=== PATIENT | female | born 1955 | race Caucasian/White ===

== ENCOUNTER 2016-10-05 16:40 | Emergency (ER) | payer MEDICAID ==
[~2016-10-05] VITALS: Ht 170.2 cm; Wt 57.9 kg
[~2016-10-05 16:40] MED LIST: FLUT1DIS3 INH
[2016-10-05 16:42] VITALS: BP 145/89
[2016-10-05] MEDS ORDERED: PROPARACAINE OPHTH 0.5%, 15ML EACHEYE ONE (17:00)
[2016-10-05] MEDS ORDERED: FLUORESCEIN OPHTHALMIC 1 MG STRIP EACHEYE ONE (17:00)
[2016-10-05] MEDS ORDERED: FLUORESCEIN OPHTHALMIC 1 MG STRIP ONE (17:17)
[2016-10-05] MEDS ORDERED: PROPARACAINE OPHTH 0.5%, 15ML ONE (17:18)
== END 2016-10-05 18:39 | disposition home or self-care (01) ==
LOC: ED 18:19
DX: H10.11 Acute atopic conjunctivitis, right eye (principal); L73.9 Follicular disorder, unspecified
CPT/HCPCS: 99283

== ENCOUNTER 2016-11-06 12:04 | Emergency (ER) | payer MEDICAID ==
[~2016-11-06] VITALS: Ht 167.6 cm; Wt 55.9 kg
[2016-11-06 12:06] VITALS: BP 150/75
[2016-11-06] MEDS ORDERED: IBUPROFEN 200 MG TABLET ONE (13:00)
[2016-11-06] MEDS ORDERED: METHOCARBAMOL 750 MG TABLET ONE (13:00)
[2016-11-06] MEDS ORDERED: OXYcodone/APAP 5/325MG TABLET PO ONE (13:00)
[2016-11-06] MEDS ORDERED: OXYcodone/APAP 5/325MG TABLET ONE (13:00)
[2016-11-06] MEDS ORDERED: METHOCARBAMOL 750 MG TABLET PO ONE (13:00)
[2016-11-06] MEDS ORDERED: IBUPROFEN 200 MG TABLET PO ONE (13:00)
== END 2016-11-06 14:50 | disposition home or self-care (01) ==
LOC: ED 14:40
DX: S49.92XA Unspecified injury of left shoulder and upper arm, initial encounter (principal); E03.9 Hypothyroidism, unspecified; E78.00 Pure hypercholesterolemia, unspecified; F17.210 Nicotine dependence, cigarettes, uncomplicated; J45.909 Unspecified asthma, uncomplicated; J44.9 Chronic obstructive pulmonary disease, unspecified; W01.0XXA Fall on same level from slipping, tripping and stumbling without subsequent striking against object, initial encounter; Y93.89 Activity, other specified; Y99.8 Other external cause status; Y92.009 Unspecified place in unspecified non-institutional (private) residence as the place of occurrence of the external cause
CPT/HCPCS: 72050; 72072

== ENCOUNTER 2017-01-28 10:41 | Emergency (ER) | payer MEDICAID ==
[~2017-01-28] VITALS: Ht 170.2 cm; Wt 50.9 kg
[2017-01-28 10:55] VITALS: BP 121/87
[2017-01-28] MEDS ORDERED: FLUORESCEIN OPHTHALMIC 1 MG STRIP ONE (11:12)
[2017-01-28] MEDS ORDERED: PROPARACAINE OPHTH 0.5%, 15ML ONE (11:12)
== END 2017-01-28 12:13 | disposition home or self-care (01) ==
LOC: ED 12:00
DX: S00.211A Abrasion of right eyelid and periocular area, initial encounter (principal); E03.9 Hypothyroidism, unspecified; J44.9 Chronic obstructive pulmonary disease, unspecified; F17.200 Nicotine dependence, unspecified, uncomplicated; W22.8XXA Striking against or struck by other objects, initial encounter; Y93.89 Activity, other specified; Y92.89 Other specified places as the place of occurrence of the external cause; Y99.8 Other external cause status
CPT/HCPCS: 99283

== ENCOUNTER 2017-03-05 16:46 | Emergency (ER) | payer MEDICAID ==
[~2017-03-05] VITALS: Ht 167.6 cm; Wt 49.7 kg
[2017-03-05] MEDS ORDERED: ONDANSETRON 2MG/ML, 2ML IVPush ONE (17:30)
[2017-03-05] MEDS ORDERED: SODIUM CHLORIDE FLUSH 10ML SYR IVF ONE (17:30)
[2017-03-05] MEDS ORDERED: HYDROmorphone 1 MG/ML, 1ML IVPush PRN (17:30)
[2017-03-05] MEDS ORDERED: HYDROmorphone 1 MG/ML, 1ML ONE (17:53)
[2017-03-05] MEDS ORDERED: ONDANSETRON 2MG/ML, 2ML ONE (17:53)
[2017-03-05 17:57] LABS: HEMOGLOBIN 14.9 g/dL (11.7-16.4); WHITE BLOOD COUNT 8.8 x10^3/uL (3.4-10)
[2017-03-05 18:07] LABS: BLOOD UREA NITROGEN 22 mg/dL (7-18)
[2017-03-05] MEDS ORDERED: OMNIPAQUE 350 MG/ML, 100ML BOTTLE ONE (18:53)
[2017-03-05 19:30] VITALS: BP 133/85
== END 2017-03-05 20:33 | disposition home or self-care (01) ==
LOC: ED 20:27
DX: S20.211A Contusion of right front wall of thorax, initial encounter (principal); J44.9 Chronic obstructive pulmonary disease, unspecified; E78.00 Pure hypercholesterolemia, unspecified; W01.190A Fall on same level from slipping, tripping and stumbling with subsequent striking against furniture, initial encounter; Y93.89 Activity, other specified; Y99.8 Other external cause status; Y92.89 Other specified places as the place of occurrence of the external cause
CPT/HCPCS: 36415; 71101; 74177; 80048; 82040; 85025; 96374; 96375; 99285; J1170; J2405; Q9967

== ENCOUNTER 2017-05-12 12:15 | Emergency (ER) | payer MEDICAID ==
[~2017-05-12] VITALS: Ht 168.9 cm; Wt 51.7 kg
[2017-05-12 12:16] VITALS: BP 122/85
== END 2017-05-12 13:54 | disposition home or self-care (01) ==
LOC: ED 13:44
DX: N30.90 Cystitis, unspecified without hematuria (principal); J01.00 Acute maxillary sinusitis, unspecified; J44.9 Chronic obstructive pulmonary disease, unspecified; E03.9 Hypothyroidism, unspecified; E78.00 Pure hypercholesterolemia, unspecified
CPT/HCPCS: 81001; 87077; 87086; 87186; 99284

== ENCOUNTER 2017-09-13 19:22 | Emergency (ER) | payer MEDICAID ==
[~2017-09-13] VITALS: Ht 167.6 cm; Wt 52.3 kg
[2017-09-13] MEDS ORDERED: ALBUTEROL NEB (19:31)
[2017-09-13 20:43] LABS: BASOPHILS # (AUTO) 0.06 x10^3/uL (0-0.1); BASOPHILS % (AUTO) 1 % (0-1); EOSINOPHILS # (AUTO) 0.16 x10^3/uL (0-0.4); EOSINOPHILS % (AUTO) 2 % (1-7); LYMPHOCYTES # (AUTO) 2.55 x10^3/uL (1-3.4); LYMPHOCYTES % (AUTO) 27 % (22-44); MD NO; MEAN CORPUSCULAR HEMOGLOBIN 31.4 pg (27.0-34.8); MEAN CORPUSCULAR HGB CONC 33.6 g/dL (32.4-35.8); MEAN CORPUSCULAR VOLUME 93.6 fL (80-100); MEAN PLATELET VOLUME 7.4 fL (7.4-10.4); MONOCYTES # (AUTO) 0.69 x10^3/uL (0.2-0.8); MONOCYTES % (AUTO) 7 % (2-9); NEUTROPHILS # (AUTO) 6.17 x10^3/uL (1.8-6.8); NEUTROPHILS % (AUTO) 64 % (42-75); PLATELET COUNT 473 x10^3/uL (130-400); RED BLOOD COUNT 4.64 x10^6/uL (3.82-5.3)
[2017-09-13 20:48] LABS: ANION GAP 6 mmol/L (5-15); CALCIUM 8.9 mg/dL (8.5-10.1); CHLORIDE 110 mmol/L (98-107); CREATININE 0.84 mg/dL (0.55-1.02)
[2017-09-13 20:51] LABS: TROPONIN I < 0.015 ng/mL (0.000-0.045)
[2017-09-13 21:37] VITALS: BP 121/74
== END 2017-09-13 21:39 | disposition home or self-care (01) ==
LOC: ED 21:29
DX: B34.9 Viral infection, unspecified (principal); I10 Essential (primary) hypertension; J44.9 Chronic obstructive pulmonary disease, unspecified; E03.9 Hypothyroidism, unspecified; E78.00 Pure hypercholesterolemia, unspecified; F17.200 Nicotine dependence, unspecified, uncomplicated
CPT/HCPCS: 36415; 71046; 80048; 82040; 84484; 85025; 93005; 99285

== ENCOUNTER 2018-03-29 13:19 | Emergency (ER) | payer MEDICAID ==
[~2018-03-29] VITALS: Ht 167.6 cm; Wt 48.0 kg
[~2018-03-29 13:19] MED LIST changes: +ALBUTEROL NEB
[2018-03-29 13:31] VITALS: BP 147/95
[2018-03-29] MEDS ORDERED: HYDROcodone/APAP 5/325 TABLET PO ONE (14:00)
[2018-03-29] MEDS ORDERED: HYDROcodone/APAP 5/325 TABLET ONE (14:41)
[2018-03-30] MEDS ORDERED: ALBU0.63 NEB (14:01)
== END 2018-03-29 15:13 | disposition home or self-care (01) ==
LOC: ED 14:32
DX: K02.9 Dental caries, unspecified (principal); I10 Essential (primary) hypertension; J45.909 Unspecified asthma, uncomplicated; F17.210 Nicotine dependence, cigarettes, uncomplicated
CPT/HCPCS: 99283

== ENCOUNTER 2018-03-30 13:29 | Emergency (ER) | payer MEDICAID ==
[~2018-03-30] VITALS: Ht 167.6 cm; Wt 46.9 kg
[2018-03-30 13:41] VITALS: BP 136/94
[2018-03-30] MEDS ORDERED: ALBU0.63 NEB (14:01)
== END 2018-03-30 14:10 | disposition home or self-care (01) ==
LOC: ED 14:03
DX: K08.89 Other specified disorders of teeth and supporting structures (principal); J44.9 Chronic obstructive pulmonary disease, unspecified; E03.9 Hypothyroidism, unspecified; E78.00 Pure hypercholesterolemia, unspecified; I10 Essential (primary) hypertension; F17.200 Nicotine dependence, unspecified, uncomplicated
CPT/HCPCS: 99283

== ENCOUNTER 2018-04-03 21:28 | Emergency (ER) | payer MEDICAID ==
[~2018-04-03] VITALS: Ht 167.6 cm; Wt 47.0 kg
[~2018-04-03 21:28] MED LIST changes: +ALBU0.63 NEB
[2018-04-03 21:29] VITALS: BP 169/102
[2018-04-03 22:13] LABS: BASOPHILS # (AUTO) 0.05 x10^3/uL (0-0.1); BASOPHILS % (AUTO) 1 % (0-1); EOSINOPHILS # (AUTO) 0.24 x10^3/uL (0-0.4); EOSINOPHILS % (AUTO) 2 % (1-7); LYMPHOCYTES # (AUTO) 1.67 x10^3/uL (1-3.4); LYMPHOCYTES % (AUTO) 16 % (22-44); MD NO; MEAN CORPUSCULAR HEMOGLOBIN 31.7 pg (27.0-34.8); MEAN CORPUSCULAR HGB CONC 33.7 g/dL (32.4-35.8); MEAN CORPUSCULAR VOLUME 94.1 fL (80-100); MONOCYTES # (AUTO) 0.86 x10^3/uL (0.2-0.8); MONOCYTES % (AUTO) 8 % (2-9); NEUTROPHILS # (AUTO) 7.96 x10^3/uL (1.8-6.8); NEUTROPHILS % (AUTO) 74 % (42-75); PLATELET COUNT 277 x10^3/uL (130-400); RED BLOOD COUNT 4.54 x10^6/uL (3.82-5.3); RED CELL DISTRIBUTION WIDTH 13.9 % (9.6-15.2)
[2018-04-03 22:24] LABS: ALBUMIN 3.5 g/dL (3.4-5.0); ANION GAP 10 mmol/L (5-15); CALCIUM 9.3 mg/dL (8.5-10.1); CHLORIDE 110 mmol/L (98-107); CREATININE 0.72 mg/dL (0.55-1.02)
[2018-04-03 22:28] LABS: TROPONIN I < 0.015 ng/mL (0.000-0.045)
== END 2018-04-03 22:56 | disposition home or self-care (01) ==
LOC: ED 22:33
DX: J44.1 Chronic obstructive pulmonary disease with (acute) exacerbation (principal); I10 Essential (primary) hypertension; E78.00 Pure hypercholesterolemia, unspecified; E03.9 Hypothyroidism, unspecified
CPT/HCPCS: 36415; 71046; 80048; 82040; 84484; 85025; 93005; 99285; J7512

== ENCOUNTER 2018-12-12 19:30 | Emergency (ER) | payer MEDICAID ==
[~2018-12-12] VITALS: Ht 170.2 cm; Wt 51.9 kg
[2018-12-12 19:35] VITALS: BP 155/93
== END 2018-12-12 20:46 | disposition home or self-care (01) ==
LOC: ED 20:11
DX: J06.9 Acute upper respiratory infection, unspecified (principal); I10 Essential (primary) hypertension; J44.9 Chronic obstructive pulmonary disease, unspecified; E78.00 Pure hypercholesterolemia, unspecified; E03.9 Hypothyroidism, unspecified; F17.210 Nicotine dependence, cigarettes, uncomplicated; Z72.9 Problem related to lifestyle, unspecified
CPT/HCPCS: 71046; 99283

== ENCOUNTER 2021-01-09 18:56 | Emergency (ER) | payer MEDICAID ==
[~2021-01-09] VITALS: Ht 167.6 cm; Wt 48.0 kg
[2021-01-09 19:14] VITALS: BP 174/102
[2021-01-09 19:49] LABS: BASOPHILS % (AUTO) 1 % (0-1); EOSINOPHILS % (AUTO) 1 % (1-7); LYMPHOCYTES % (AUTO) 23 % (22-44); MEAN CORPUSCULAR HEMOGLOBIN 31.7 pg (27.0-34.8); MEAN CORPUSCULAR HGB CONC 33.1 g/dL (32.4-35.8); MEAN PLATELET VOLUME 7.7 fL (7.4-10.4); MONOCYTES % (AUTO) 9 % (2-9); NEUTROPHILS % (AUTO) 66 % (42-75); PLATELET COUNT 510 x10^3/uL (130-400); RED BLOOD COUNT 4.93 x10^6/uL (3.82-5.3); RED CELL DISTRIBUTION WIDTH 13.5 % (9.6-15.2)
[2021-01-09 19:53] LABS: ANION GAP 4 mmol/L (5-15); CALCIUM 9.5 mg/dL (8.5-10.1); CHLORIDE 105 mmol/L (98-107); CREATININE 0.87 mg/dL (0.55-1.02)
== END 2021-01-09 21:54 | disposition left against medical advice (07) ==
LOC: ED 19:26
DX: M79.641 Pain in right hand (principal); R50.9 Fever, unspecified; M79.642 Pain in left hand
CPT/HCPCS: 36415; 80048; 83605; 85025; 87040; 99283

== ENCOUNTER 2021-01-16 19:16 | Emergency (ER) | payer MEDICAID ==
[~2021-01-16] VITALS: Ht 167.6 cm; Wt 50.0 kg
[2021-01-16 19:23] VITALS: BP 153/99
--- NOTE | 2021-01-16 20:07 | NUR ---
DC BY PROVIDER.
== END 2021-01-16 20:09 | disposition home or self-care (01) ==
LOC: ED 19:45
DX: R21 Rash and other nonspecific skin eruption (principal); J44.9 Chronic obstructive pulmonary disease, unspecified; I10 Essential (primary) hypertension; E78.00 Pure hypercholesterolemia, unspecified; E03.9 Hypothyroidism, unspecified
CPT/HCPCS: 99283